=== PATIENT | male | born 1985 | race African-American/Black ===

== ENCOUNTER 2021-12-17 01:58 | Inpatient (IN) | payer OTHER ==
[~2021-12-17] VITALS: Ht 175.3 cm; Wt 92.3 kg
[2021-12-17] MEDS ORDERED: MORPHINE SULFATE 4 MG/ML SYR/VIAL IV ONE ×2 (02:30→03:00)
[2021-12-17] MEDS ORDERED: ONDANSETRON HCL 4 MG/2 ML VIAL IV ONE ×2 (02:30→03:00)
[2021-12-17] MEDS ORDERED: SODIUM CHLORIDE 0.9% 1,000 ML IV ONE ×3 (02:30→08:30)
[2021-12-17] MEDS ORDERED: IOHEXOL 300 MG/ML 100ML BOTTLE IJ ONE ×2 (02:50→03:24)
[2021-12-17 03:10] LABS: Basophils # (auto) 0.1 10 ^3/uL (0-0.2); Basophils % (auto) 1.2 % (0.0-2.0); Eosinophils # (auto) 0.1 10 ^3/uL (0-0.8); Eosinophils % (auto) 3.1 % (0.0-7.0); Hematocrit 42.9 % (41.0-53.0); Hemoglobin 14.6 g/dL (13.5-17.5); Lymphocytes # (auto) 1.6 10 ^3/uL (0.4-5.4); Lymphocytes % (auto) 35.9 % (10.0-50.0); Mean Corpuscular Hgb Conc. 34.1 g/dL (32.0-36.0); Monocytes # (auto) 0.4 10 ^3/uL (0-1.3); Monocytes % (auto) 8.3 % (0.0-12.0); Neutrophils # (auto) 2.4 10 ^3/uL (1.6-8.6); Neutrophils % (auto) 51.5 % (37.0-80.0); Nucleated Red Blood Cells % 0.1 %; Red Blood Cells 5.23 10^6/uL (4.5-5.90); Red Cell Distribution Width 13.8 % (11.8-14.3); White Blood Cell 4.6 10^3/uL (4.4-10.8)
[2021-12-17 03:26] LABS: Albumin 3.5 g/dL (3.4-5.0); BUN/Creatinine Ratio 10.4; Calcium 8.6 mg/dL (8.5-10.1)
[2021-12-17 03:36] LABS: Bilirubin, Total 0.2 mg/dL (0.2-1.0); Total Protein 7.4 g/dL (6.4-8.2)
[2021-12-17 03:58] LABS: INR 1.05 (0.9-1.15); Partial Thromboplastin Time 28.7 sec (23.6-33.0)
[2021-12-17 04:37] LABS: Urine Bacteria NONE SEEN /hpf (None Seen); Urine Blood 3+ /uL (Negative); Urine Mucus FEW (None Seen); Urine Specific Gravity 1.017 (1.001-1.035); Urine WBC 8 /hpf (0 - 3)
[2021-12-17] MEDS ORDERED: PIPERACILLIN-TAZOB 3.375GM 100 ML IV ONE (06:00)
[2021-12-17] MEDS ORDERED: cefTRIAXone 1GM/50ML D5W 50 ML IV ONE ×2 (08:30→10:15)
[2021-12-17] MEDS ORDERED: SODIUM CHLORIDE 0.9% 500 ML IVB ONE (08:30)
[2021-12-17] MEDS ORDERED: PROMETHAZINE HCL 25 MG/ML 1ML IV PRN (08:30)
[2021-12-17] MEDS ORDERED: HYDROmorphone HCL 2 MG/ML VL IV ONE (08:30)
[2021-12-17] MEDS ORDERED: NITROGLYCERIN 0.4 MG SL TAB SL PRN (10:00)
[2021-12-17] MEDS ORDERED: MORPHINE SULFATE INJECTION 2 MG/ML SYRG IV PRN ×2 (10:00→10:15)
[2021-12-17] MEDS ORDERED: PANTOPRAZOLE 40 MG/10 ML VIAL INJ IV ONE (10:15)
[2021-12-17] MEDS ORDERED: LACTULOSE 20Gm/30ML SOLN PO PRN (10:15)
[2021-12-17] MEDS ORDERED: ONDANSETRON HCL 4 MG/2 ML VIAL IV PRN (10:15)
[2021-12-17] MEDS ORDERED: LORazepam 0.5 MG TAB PO PRN (10:15)
[2021-12-17] MEDS ORDERED: ALBUTEROL SULF 2.5 MG/0.5ML(0.5%) NEB SOLN NEB ONE (10:15)
[2021-12-17] MEDS ORDERED: DOCUSATE SOD 100 MG CAP PO PRN (10:15)
[2021-12-17] MEDS ORDERED: ACETAMINOPHEN 325 MG TAB PO PRN (10:15)
[2021-12-17] MEDS ORDERED: HYDROcodone-ACET 5/325MG TAB PO ONE (10:15)
[2021-12-17] MEDS ORDERED: BUDESONIDE (INHALATION) 0.5 MG/2 ML NEB NEB ONE (10:15)
[2021-12-17] MEDS ORDERED: FOLIC ACID 1 MG TAB PO ONE (10:15)
[2021-12-17] MEDS ORDERED: SUCRALFATE 1 GM/10 ML ORAL SUSP PO ONE (10:15)
[2021-12-17] MEDS ORDERED: MONTELUKAST SODIUM 10 MG TAB PO ONE (10:15)
[2021-12-17] MEDS ORDERED: hydrALAZINE HCL 20 MG/ML VL IV PRN (10:15)
[2021-12-17] MEDS ORDERED: IPRATROPIUM BROM 0.5 MG/2.5ML INH SOL NEB ONE (10:15)
[2021-12-17] MEDS ORDERED: ALBUTEROL SULF 2.5 MG/0.5ML(0.5%) NEB SOLN NEB PRN (10:15)
[2021-12-17] MEDS ORDERED: methylPREDNISolone SOD SUCC 125 MG/2 ML VL IV ONE (10:15)
[2021-12-17] MEDS ORDERED: HCTZ 25 MG TAB PO ONE (10:15)
[2021-12-17] MEDS ORDERED: CLINDAMYCIN 600MG IV 50 ML IV ONE (10:30)
[2021-12-17] MEDS: D5W/SOD CHLO 0.9% 1,000 ML IV SCH (10:45)
[2021-12-17 11:47] LABS: Magnesium 2.1 mg/dL (1.6-2.6); Phosphorus 3.5 mg/dL (2.5-4.90)
[2021-12-17 11:57] LABS: INR 1.03 (0.9-1.15); Partial Thromboplastin Time 24.8 sec (23.6-33.0)
[2021-12-17] MEDS: HYDROcodone-ACET 5/325MG TAB PO PRN ×2 (13:05→18:42)
[2021-12-17 13:45] VITALS: BP 160/109
[2021-12-17] MEDS ORDERED: ACETYLCYSTEINE 10 %(100MG/ML) SOL 4ML NEB SCH (14:00)
[2021-12-17] MEDS ORDERED: IPRATROPIUM BROM 0.5 MG/2.5ML INH SOL NEB SCH (14:00)
[2021-12-17] MEDS: methylPREDNISolone SOD SUCC 40 MG/ML VL IV SCH ×2 (14:07→21:53)
[2021-12-17] MEDS: SUCRALFATE 1 GM/10 ML ORAL SUSP PO SCH ×2 (17:30→21:53)
[2021-12-17] MEDS: CLINDAMYCIN 600MG IV 50 ML IV SCH (17:30)
[2021-12-17] MEDS: TAMSULOSIN HYDROCHLORIDE 0.4 MG CAP PO SCH (17:30)
[2021-12-17 19:50] VITALS: BP 143/82
[2021-12-17] MEDS: ATORVASTATIN 20 MG TAB PO SCH (21:53)
[2021-12-17 22:00] VITALS: BP 143/82
[2021-12-17] MEDS ORDERED: BUDESONIDE (INHALATION) 0.5 MG/2 ML NEB NEB SCH (22:00)
[2021-12-18] MEDS: CLINDAMYCIN 600MG IV 50 ML IV SCH ×3 (00:33→17:21)
[2021-12-18 05:00] VITALS: BP 158/100
[2021-12-18 06:04] LABS: Albumin 3.4 g/dL (3.4-5.0); Anion Gap 5 (5-15); Blood Urea Nitrogen 13 mg/dL (7-18); CRP High Sensitivity 0.49 mg/dL (< 0.3); Calcium 8.9 mg/dL (8.5-10.1); Carbon Dioxide 28 mmol/L (21-32); Chloride 102 mmol/L (98-107); Glucose 155 mg/dL (74-106); Lipase 37 U/L (73-393); Magnesium 2.2 mg/dL (1.6-2.6); Potassium 4.3 mmol/L (3.5-5.1); Sodium 135 mmol/L (136-145)
[2021-12-18 06:09] LABS: Basophils # (auto) 0.1 10 ^3/uL (0-0.2); Basophils % (auto) 0.8 % (0.0-2.0); Eosinophils # (auto) 0 10 ^3/uL (0-0.8); Hematocrit 44.5 % (41.0-53.0); Lymphocytes # (auto) 1.1 10 ^3/uL (0.4-5.4); Lymphocytes % (auto) 16.9 % (10.0-50.0); Mean Corpuscular Hemoglobin 27.7 pg (28.0-32.0); Mean Corpuscular Hgb Conc. 33.6 g/dL (32.0-36.0); Mean Corpuscular Volume 82.5 fL (80.0-100.0); Monocytes # (auto) 0.2 10 ^3/uL (0-1.3); Monocytes % (auto) 3.5 % (0.0-12.0); Neutrophils % (auto) 78.8 % (37.0-80.0); Nucleated Red Blood Cells % 0.4 %; Red Cell Distribution Width 13.8 % (11.8-14.3); White Blood Cell 6.4 10^3/uL (4.4-10.8)
[2021-12-18 06:12] LABS: Alanine Aminotransferase 24 U/L (16-61); Alkaline Phosphatase 92 U/L (45-117); Aspartate Aminotransferase 15 U/L (15-37); BUN/Creatinine Ratio 13.4; Bilirubin, Total 0.4 mg/dL (0.2-1.0); Cholesterol 159 mg/dL (< 200); Creatine Kinase IFCC 168 U/L (39-308); GFR African American 111 mL/min; GFR Non-African American 92 mL/min; HDL Cholesterol 42 mg/dL (40-59); LDL Cholesterol 102 mg/dL (< 100); Total Protein 7.6 g/dL (6.4-8.2); Triglycerides 67 mg/dL (< 150); Uric Acid 4.4 mg/dL (3.5-7.2)
[2021-12-18] MEDS: D5W/SOD CHLO 0.9% 1,000 ML IV SCH (06:21)
[2021-12-18] MEDS: SUCRALFATE 1 GM/10 ML ORAL SUSP PO SCH ×4 (06:21→22:03)
[2021-12-18] MEDS: methylPREDNISolone SOD SUCC 40 MG/ML VL IV SCH ×3 (06:23→22:03)
[2021-12-18 06:27] LABS: INR 1.02 (0.9-1.15); Partial Thromboplastin Time 27.6 sec (23.6-33.0)
[2021-12-18] MEDS ORDERED: cefTRIAXone 1GM/50ML D5W 100 ML IV ONE (08:28)
[2021-12-18] MEDS: cefTRIAXone 1GM/50ML D5W 50 ML IV SCH (08:30)
[2021-12-18] MEDS ORDERED: MIDAZOLAM HCL 2MG/2ML 2ml VIAL (1mg/ml) ONE (08:35)
[2021-12-18] MEDS ORDERED: ROCURONIUM 10MG/ML 10ML VIAL IV ONE (08:35)
[2021-12-18] MEDS ORDERED: fentaNYL CITRATE 100 MCG/2 ML VL ONE (08:35)
[2021-12-18] MEDS ORDERED: PROPOFOL 10 MG/ML 20 ML IV ONE (08:37)
[2021-12-18] MEDS ORDERED: ONDANSETRON HCL 4 MG/2 ML VIAL ONE (08:37)
[2021-12-18] MEDS ORDERED: LIDOCAINE 2% (LOCAL ANESTH.) PF 5ml SDV ONE (08:37)
[2021-12-18] MEDS ORDERED: BUPIVACAINE W/ EPINEPH 0.25% INJ 50ML MDV ONE (09:01)
[2021-12-18] MEDS ORDERED: GLYCOPYRROLATE 0.2 MG/ML 1ML VIAL ONE (09:28)
[2021-12-18] MEDS ORDERED: NEOSTIGMINE 1 MG/ML INJ (10mg/10ML VIAL) ONE (09:29)
[2021-12-18] MEDS ORDERED: SUGAMMADEX 200mg/2ml Vial (100MG/ML) IV ONE (09:40)
[2021-12-18] MEDS ORDERED: HYDROmorphone HCL 2 MG/ML VL ONE (10:22)
[2021-12-18] MEDS ORDERED: ONDANSETRON HCL 4 MG/2 ML VIAL IV PRN (10:30)
[2021-12-18] MEDS ORDERED: HYDROmorphone HCL 2 MG/ML VL IV PRN ×2 (10:30)
[2021-12-18] MEDS: HYDROcodone-ACET 5/325MG TAB PO PRN (11:30)
[2021-12-18] MEDS: THIAMINE HCL 100 MG TAB PO SCH (12:30)
[2021-12-18] MEDS: PANTOPRAZOLE 40 MG/10 ML VIAL INJ IV SCH (12:30)
[2021-12-18] MEDS: MULTIPLE VITAMINS W/ MINERALS TAB PO SCH (12:30)
[2021-12-18] MEDS: ASPirin 81 mg TAB PO SCH (12:30)
[2021-12-18] MEDS: HCTZ 25 MG TAB PO SCH (12:30)
[2021-12-18] MEDS: ENOXAPARIN SOD 40 MG/0.4 ML SYRINGE SC SCH (12:30)
[2021-12-18] MEDS: FOLIC ACID 1 MG TAB PO SCH (12:30)
[2021-12-18] MEDS: CHOLECALCIFEROL (VITD3) 2,000 UNIT CAP/TAB PO SCH (12:30)
[2021-12-18] MEDS: CYANOCOBALAMIN 500 MCG TAB PO SCH (12:30)
[2021-12-18 13:00] VITALS: BP 131/78
[2021-12-18 17:00] VITALS: BP 152/104
[2021-12-18] MEDS: TAMSULOSIN HYDROCHLORIDE 0.4 MG CAP PO SCH (17:21)
[2021-12-18] MEDS ORDERED: ALBUTEROL SULF 2.5 MG/0.5ML(0.5%) NEB SOLN NEB ONE (18:15)
[2021-12-18] MEDS ORDERED: BUDESONIDE (INHALATION) 0.5 MG/2 ML NEB NEB ONE (18:15)
[2021-12-18] MEDS ORDERED: ALBUTEROL SULF 2.5 MG/0.5ML(0.5%) NEB SOLN NEB PRN (18:15)
[2021-12-18] MEDS ORDERED: IPRATROPIUM BROM 0.5 MG/2.5ML INH SOL NEB ONE (18:15)
[2021-12-18] MEDS ORDERED: IPRATROPIUM BROM 0.5 MG/2.5ML INH SOL NEB PRN (19:00)
[2021-12-18 20:06] VITALS: BP 152/107
[2021-12-18 22:00] VITALS: BP 103/73
[2021-12-18] MEDS ORDERED: MONTELUKAST SODIUM 10 MG TAB PO SCH (22:00)
[2021-12-18] MEDS ORDERED: BUDESONIDE (INHALATION) 0.5 MG/2 ML NEB NEB SCH (22:00)
[2021-12-18] MEDS ORDERED: IPRATROPIUM BROM 0.5 MG/2.5ML INH SOL NEB SCH (22:00)
[2021-12-18] MEDS: ATORVASTATIN 20 MG TAB PO SCH (22:03)
[2021-12-19] MEDS: CLINDAMYCIN 600MG IV 50 ML IV SCH (01:28)
[2021-12-19] MEDS: D5W/SOD CHLO 0.9% 1,000 ML IV SCH (02:50)
[2021-12-19 05:00] VITALS: BP 145/86
[2021-12-19] MEDS: methylPREDNISolone SOD SUCC 40 MG/ML VL IV SCH (05:51)
[2021-12-19 06:16] LABS: Basophils # (auto) 0 10 ^3/uL (0-0.2); Basophils % (auto) 0.1 % (0.0-2.0); Eosinophils # (auto) 0 10 ^3/uL (0-0.8); Hematocrit 41.7 % (41.0-53.0); Hemoglobin 14.2 g/dL (13.5-17.5); Lymphocytes # (auto) 0.9 10 ^3/uL (0.4-5.4); Lymphocytes % (auto) 8.5 % (10.0-50.0); Mean Corpuscular Hemoglobin 28.3 pg (28.0-32.0); Mean Corpuscular Hgb Conc. 34.2 g/dL (32.0-36.0); Mean Corpuscular Volume 82.7 fL (80.0-100.0); Monocytes # (auto) 0.3 10 ^3/uL (0-1.3); Monocytes % (auto) 2.9 % (0.0-12.0); Neutrophils # (auto) 9.1 10 ^3/uL (1.6-8.6); Neutrophils % (auto) 88.5 % (37.0-80.0); Nucleated Red Blood Cells % 0.3 %; Red Blood Cells 5.04 10^6/uL (4.5-5.90); Red Cell Distribution Width 13.9 % (11.8-14.3); White Blood Cell 10.3 10^3/uL (4.4-10.8)
[2021-12-19 06:27] LABS: INR 1.06 (0.9-1.15); Partial Thromboplastin Time 26.9 sec (23.6-33.0)
[2021-12-19 06:30] LABS: Potassium 4.1 mmol/L (3.5-5.1)
[2021-12-19 06:47] LABS: Albumin 3.6 g/dL (3.4-5.0); BUN/Creatinine Ratio 11.9; Bilirubin, Total 0.4 mg/dL (0.2-1.0); Magnesium 2.6 mg/dL (1.6-2.6); Phosphorus 3.1 mg/dL (2.5-4.90); Total Protein 7.7 g/dL (6.4-8.2)
[2021-12-19] MEDS: SUCRALFATE 1 GM/10 ML ORAL SUSP PO SCH ×2 (07:00→13:15)
[2021-12-19] MEDS: HYDROcodone-ACET 5/325MG TAB PO PRN ×2 (07:23→13:15)
[2021-12-19] MEDS: PANTOPRAZOLE 40 MG/10 ML VIAL INJ IV SCH (08:46)
[2021-12-19] MEDS: cefTRIAXone 1GM/50ML D5W 50 ML IV SCH (08:46)
[2021-12-19] MEDS: FOLIC ACID 1 MG TAB PO SCH (08:47)
[2021-12-19] MEDS: ENOXAPARIN SOD 40 MG/0.4 ML SYRINGE SC SCH (08:47)
[2021-12-19] MEDS: ASPirin 81 mg TAB PO SCH (08:47)
[2021-12-19] MEDS: MULTIPLE VITAMINS W/ MINERALS TAB PO SCH (08:48)
[2021-12-19] MEDS: THIAMINE HCL 100 MG TAB PO SCH (08:48)
[2021-12-19] MEDS: CHOLECALCIFEROL (VITD3) 2,000 UNIT CAP/TAB PO SCH (08:48)
[2021-12-19] MEDS: HCTZ 25 MG TAB PO SCH (08:49)
[2021-12-19] MEDS: CYANOCOBALAMIN 500 MCG TAB PO SCH (08:49)
[2021-12-19 09:00] VITALS: BP 137/78
[2021-12-19] MEDS ORDERED: ONDA-144 PO (12:48)
[2021-12-19] MEDS ORDERED: LEVO-28 PO (12:48)
[2021-12-19] MEDS ORDERED: HYDR-4902 PO (12:48)
[2021-12-19] MEDS ORDERED: METR500T PO (12:48)
[2021-12-19 13:00] VITALS: BP 126/83
[2021-12-19 13:46] VITALS: BP 126/83
== END 2021-12-19 14:41 | disposition home or self-care (01) | DRG 341 ==
LOC: EDBD 01:58 → ER 01:58 → OVERFLOW 09:55 → EAST 13:45
PROVIDERS: ADMIT Hospitalist; ATTEND Internal Medicine
PROC: 0DTJ4ZZ Resection of Appendix, Percutaneous Endoscopic Approach (ICD-10-PCS; principal; 2021-12-18 08:34)
DX: K35.80 Unspecified acute appendicitis (principal); J18.0 Bronchopneumonia, unspecified organism; J44.1 Chronic obstructive pulmonary disease with (acute) exacerbation; N39.0 Urinary tract infection, site not specified; J44.0 Chronic obstructive pulmonary disease with (acute) lower respiratory infection; J45.901 Unspecified asthma with (acute) exacerbation; N20.9 Urinary calculus, unspecified; G60.0 Hereditary motor and sensory neuropathy; J20.9 Acute bronchitis, unspecified; I25.10 Atherosclerotic heart disease of native coronary artery without angina pectoris; Z20.822 Contact with and (suspected) exposure to COVID-19; E78.5 Hyperlipidemia, unspecified; I10 Essential (primary) hypertension; G71.00 Muscular dystrophy, unspecified
CPT/HCPCS: 36415; 36600; 71046; 74177; 76705; 80053; 80061; 81001; 82550; 82728; 82805; 83036; 83615; 83690; 83735; 83880; 84100; 84443; 84484; 84550; 85025; 85379; 85610; 85652; 85730; 86141; 86850; 86900; 86901; 87040; 87086; 93005; 96365; 96366; 96367; 96368; 96375; C9113; G0378; J0696; J2001; J2250; J2405; J2543; J2704; J3490; J7042

== ENCOUNTER 2021-12-19 17:45 | Emergency (ER) | payer OTHER ==
[~2021-12-19] VITALS: Ht 175.3 cm; Wt 86.2 kg
[~2021-12-19 17:45] MED LIST: HYDR-4902 PO; LEVO-28 PO; METR500T PO; ONDA-144 PO
[2021-12-19 21:27] VITALS: BP 137/80
[2021-12-19] MEDS ORDERED: HYDROcodone-ACET 5/325MG TAB PO ONE (22:45)
== END 2021-12-19 22:57 | disposition home or self-care (01) ==
LOC: ER 17:45
DX: K91.840 Postprocedural hemorrhage of a digestive system organ or structure following a digestive system procedure (principal); Z90.89 Acquired absence of other organs